=== PATIENT | male | born 1965 | race Caucasian/White ===

== ENCOUNTER 2023-01-27 10:38 | Day surgery (SDC) | payer OTHER, SELFPAY ==
[2023-01-27] VITALS (18 sets, daily range): BP systolic 114–137; BP diastolic 76–103; PULSE 60–86; RESP 12–18; TEMP 35.5–36.8; O2SAT 86–99; BMI 33.1
[2023-01-27] MEDS: LACTATED RINGERS 1000 ML 1,000 ML 100 ML IV (11:00)
[2023-01-27] MEDS: SODIUM CHLORIDE 0.9 % (FLUSH) 10 ML SYRINGE IVF (11:00)
[2023-01-27] MEDS: ACETAMINOPHEN 500 MG TABLET 1000 MG PO ×2 (11:17→21:31)
[2023-01-27] MEDS: CELECOXIB 200 MG CAPSULE PO (11:18)
[2023-01-27] MEDS: OXYCODONE (CR) 10 MG TAB.ER.12H PO (11:18)
[2023-01-27] MEDS: fentaNYL 100 MCG/2 ML inj IVP (15:44)
--- NOTE | 2023-01-27 16:10 | SUR.PREOP ---
TIME?OUT:?1544 PT/RN/MDA?VERIFICATION?OF?SURGICAL?SITE,?PROCEDURE,?AND?CONSENT OBTAINED?PRIOR?TO?INVASIVE?PROCEDURE.
[2023-01-27] MEDS: MIDAZOLAM HCL 1 MG/ML inj IVP (16:11)
--- NOTE | 2023-01-27 16:13 | P.NB_ITS ---
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 Images saved: Yes Medications given in 5ml increments after negative aspiration: Ropivicaine %: 0.5 mL: 20 Needle gauge: 20 Decadron (mg): 10 Precedex (mcg): 25 Patient tolerated procedure well: Yes Additional comments: injected in 5ml increments after negative aspiration Block Charges Block Charge (with Pro Fee): Femoral Nerve Use of Ultrasound Machine for Block: Yes- US Guidance/pain block
--- NOTE | 2023-01-27 16:14 | W.PM.NB ---
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 Images saved: No Medications given in 5ml increments after negative aspiration: Ropivicaine %: 0.5 mL: 12 Needle gauge: 25 Patient tolerated procedure well: Yes Additional comments: Injected in 4ml increments after negative aspiration Block Charges Block Charge (with Pro Fee): Genicular Nerve Block Use of Ultrasound Machine for Block: No
[2023-01-27] MEDS: TRANEXAMIC ACID 100 MG/ML INJ 1000 MG IV (17:00)
[2023-01-27] MEDS: CEFAZOLIN 2 GM INJ IVP (17:00)
[2023-01-27] MEDS: LACTATED RINGERS 1000 ML 1,000 ML 30 ML IV (17:15)
--- NOTE | 2023-01-27 17:22 | SUR.OPER ---
PATIENT QUESTIONS ANSWERED SATISFACTORILY PREOPERATIVELY.? PATIENT BROUGHT TO OR #2 PER CART AFTER ADMINISTRATION OF A BLOCK.? Patient positioned supine on OR #2 bed.? The perioperative?team supported arms bilaterally on arm boards.? Final approval of positioning by surgeon.?
--- NOTE | 2023-01-27 17:31 | W.ANESCHARGE ---
Anesthesia Charges Start Date/Time Anesthesia Start Date: 01/27/23 Anesthesia Start Time: 16:45 Stop Date/Time Anesthesia Stop Date: 01/27/23 Anesthesia Stop Time: 19:16
--- NOTE | 2023-01-27 18:34 | CRLHL7_ITS ---
For Patients: As a result of the Century Cures Act, medical imaging exams and procedure reports are released immediately into your electronic medical record. You may view this report before your referring provider. If you have questions, please contact your health care provider. INDICATION: Follow up a left knee arthroplasty. TECHNIQUE: Two portable postoperative images of the left knee. FINDINGS: Left total knee arthroplasty. Patellar resurfacing. The components are adequately aligned and well seated. Air within the joint space and soft tissues related to the surgery. IMPRESSION: Postsurgical change from a left total knee arthroplasty. The components are adequately aligned and well seated. Dictated by Cory Girard MD @ 01/28/2023 11:35:53 AM (Electronically Signed)
--- NOTE | 2023-01-27 18:35 | PM.ORPRC ---
Procedure Note Date of procedure: 01/27/23 Procedure: PREOPERATIVE DIAGNOSIS: Left knee osteoarthritis POSTOPERATIVE DIAGNOSIS: Left knee osteoarthritis NAME OF OPERATION: Left total knee arthroplasty SURGEON: aMrlon Mendoza MD RELAY MOTORMAN: Marce Vallejo PA-C ANESTHESIA: Spinal ESTIMATED BLOOD LOSS: 0 mL COMPLICATIONS: None SPECIMENS: None DRAINS: None PREOPERATIVE ANTIBIOTICS: Ancef 2 grams, antibiotic impregnated cement IMPLANTS: 1. J&J Attune # 7 posterior stabilized femur 2. # 8 fixed-bearing tibia 3. # 8 posterior stabilized, 10 mm fixed-bearing polyethylene 4. 41 patella INDICATIONS: The patient is a 57-year-old with a longstanding history of severe, unrelenting left knee pain secondary to end-stage (grade IV) left knee osteoarthritis. Despite appropriate nonoperative management, including activity modification, anti-inflammatories, ydnr-[id number] pain medication, bracing, physical therapy, and injections they continue to have pain and disability. Operative intervention was offered. The risks, benefits and expected outcomes were discussed in detail. These included but were not limited to: Infection, bleeding, injury to blood vessel or nerve, venous thromboembolism. All questions were answered to their satisfaction. Use of an employee relations assistant was necessary throughout the case for patient positioning and safety, soft tissue retraction, and closure. PROCEDURE: Spinal anesthesia was administered. The patient was placed supine on the operating table. The employee relations assistant made sure the patient was positioned appropriately. The lower extremity was prepped and draped in the usual sterile fashion. The limb was exsanguinated with the Jamar bandage. The pneumatic tourniquet was inflated to 300 mmHg. A standard anterior incision was made with the knee in flexion. Subcutaneous dissection was sharply taken through fascial layer #1. Full-thickness medial and lateral flaps were elevated. The employee relations assistant retracted the soft tissues and protected them throughout the case. A standard medial parapatellar approach was made. The patella was everted. The infrapatellar fat pad was preserved. The menisci and cruciate ligaments were sharply d?brided. Marginal osteophytes were d?brided with the rongeur. The drill was used to penetrate the femoral canal. The canal was aspirated and irrigated with pulse lavage. The intramedullary femoral guide was placed for a 5-degree valgus cut, removing 10 mm off the distal femur. The saw was used to make the cut. Whitesides line and the trans epicondylar axis were marked. The femoral sizing guide was pinned onto the distal femur. Three degrees of external rotation nicely parallels the transepicondylar axis. Pins were placed for posterior referencing. The four-in-one cutting guide was pinned onto the distal femur. The anterior, posterior, and chamfer cuts were made. The employee relations assistant protected the collateral ligaments. The box cutting guide was pinned. The box cuts were made. The boxed trial was placed and was an excellent fit. Drill holes for the lugs were made. Attention was then turned to the proximal tibia. The extramedullary tibial guide was placed for a neutral varus/valgus cut with 5 degrees of posterior slope, removing 2 mm based off the medial tibial surface. The employee relations assistant protected the collateral ligaments and the neurovascular bundle. The saw was used to make the cut. Trial components were placed. The knee was nicely balanced in both flexion and extension. The trial components were removed. The tray was placed in appropriate rotation, parallel to our tibial cutting pins. It was pinned by the employee relations assistant and the drill and the punch were used. The tray was removed. The punch was used again. We placed a bone plug in the femoral canal. Attention was then turned to the patella. Quileute patellar thickness was 26 mm. The lobster claw resection guide was used with the 9.5 mm luis miguel. The saw was used to make the cut. Drill holes were made by the employee relations assistant. The trial was placed and was an excellent fit. Cancellous surfaces were irrigated with pulse lavage and thoroughly dried by the employee relations assistant. We cemented the tibial component, then the femoral component. We impacted the 10 mm polyethylene onto the tibial tray. The knee was brought into full extension. We then cemented the patellar component. Excessive cement was removed. The cement was allowed to harden. The knee was taken through a range of motion and was found to be nicely balanced in both flexion and extension. The patella tracks centrally. The employee relations assistant did a three minute dilute Betadine solution soak. The employee relations assistant irrigated the wound with 3 liters of normal saline via pulse lavage. The employee relations assistant reapproximated the extensor mechanism with #1 Vicryl in an interrupted gnokad-yb-shhbv fashion. The employee relations assistant then ran the extensor mechanism with a #1 PDO Stratafix. The employee relations assistant closed the subcutaneous tissues with a 3-0 Stratafix and the skin with a running 3-0 Stratafix in a subcuticular fashion. Glue was used to seal the skin. The employee relations assistant placed a dry dressing, BARBARA stocking, and Polar Care. Sponge and needle counts were correct x2. The patient tolerated the procedure well. There were no apparent complications. They were carefully transferred to the hospital bed and taken to the postanesthesia care unit in satisfactory condition. PLAN: The patient will be mobilized with physical therapy. Aspirin will be used for DVT prophylaxis. They will be discharged to home once medically appropriate.
--- NOTE | 2023-01-27 18:59 | PM.IMCN1 ---
Date of Consult Patient: Mazin Patient Consult date: 01/27/23 Requesting Physician: Orthopedics Primary Care Provider: Reddy Grigsby MD Consult Narrative Reason for consult: Medical management of comorbidities Narrative: Maxwell Garrison is a 57 year old male who presented to the hospital today for an elective L TKA. There were no surgical or anesthetic complications noted during procedure. Patient's H&P reviewed, PCP is Dr. Grigsby. Past medical history significant for: noninsulin dependent DM2 (on Metformin as monotherapy, last A1C <6.5), hyperlipidemia. History of blood clots: No Postoperative plan: Home with Review of Systems Status of ROS: Reports: 10 or more systems reviewed and unremarkable except as noted in History and below PFSH [facility] Medical History (Updated 05/28/22 @ 11:46 by Xiomy Beckham) Diabetes ?E11.9 - Type 2 diabetes mellitus without complications (ICD-10) Sleep apnea ?G47.30 - Sleep apnea, unspecified (ICD-10) Surgical History (Updated 01/27/23 @ 20:48 by Katina Alexandre MD) Status post left knee replacement ?Z96.652 - Presence of left artificial knee joint (ICD-10) H/O arthroscopy of left knee ?Z98.890 - Other specified postprocedural states (ICD-10) S/P right knee arthroscopy (03/17/08) ?Z98.890 - Other specified postprocedural states (ICD-10) Status post arthroscopy of right shoulder (08/12/13) ?Z98.890 - Other specified postprocedural states (ICD-10) Social History What is your current living situation?: I presently have a place to live Problems where you live: no known problems In the past 12 months, utilities in danger of being shut off: no In past 12 months, lack of transportation kept you from medical appts, meetings, work, or getting things needed for daily living: no In the past 12 mos, have been you worried that your food would run out before you had money to buy more?: never true In the past 12 mos, the food you bought just didn't last and you didn't have money to buy more?: never true Smoking Status: Never smoker How often do you have a drink containing alcohol: 2-3 times a week How many standard drinks containing alcohol do you have on a typical day: 1 or 2 How often do you have six or more drinks on one occasion: Never AUDIT-C Alcohol total score: 3 Non-prescribed substance use: denies use How often does anyone, including family, friends and others, physically hurt you: never How often does anyone, including family, friends and others, insult or talk down to you: never How often does anyone, including family, friends and others, threaten you with harm: never How often does anyone, including family, friends and others, scream or curse at you: never service: No Meds Home Medications and Allergies Home Medications Medication Instructions Recorded Confirmed Type atorvastatin 20 mg tablet 20 mg PO DAILY 05/28/22 01/27/23 History diclofenac sodium 100 mg 100 mg PO DAILY 05/28/22 01/27/23 History tablet,extended release 24 hr metformin 500 mg tablet,extended 1,000 mg PO DAILY 05/28/22 01/27/23 History release 24 hr Allergies Allergy/AdvReac Type Severity Reaction Status Date / Time No Known Drug Allergies Allergy Verified 01/27/23 11:57 Exam Narrative: Exam Narrative: GEN: Alert and oriented, answering questions appropriately HEENT: EOMIs bilaterally, no scleral icterus CV: RRR, No concerning murmurs, rubs, or gallops R: No tachpynea, stable on RA. LCTA bilaterally without concerning wheezing Ext: wearing teds bilaterally Skin: No concerning skin lesions or rashes on exposed skin Neuro: Nonfocal Psych: Appropriate Const: Vital Signs, click to edit/add: Vital Signs - 24 hr 01/27/23 11:30 01/27/23 15:41 01/27/23 15:45 Temperature 97.9 F Pulse Rate 73 63 65 Respiratory Rate 16 16 16 Blood Pressure 137/76 123/94 H 123/88 Pulse Oximetry 94 95 95 Oxygen Delivery Me thod Room Air Room Air Room Air Assessment and Plan Assessment and plan (1) Status post left knee replacement: Problem comment: - 01/27/23Reji Status: Acute Plan - pain management and prophylaxis per orthopedic surgery team - continue home medications for comorbidities - anticipate routine postoperative course
[2023-01-27] MEDS: ASPIRIN 81 MG TABLET EC PO (21:31)
[2023-01-27] MEDS: SENNOSIDES 1 TAB TABLET 2 TAB PO (21:32)
[2023-01-27] MEDS: OXYCODONE 5 MG TABLET PO (23:40)
[2023-01-27] MEDS: ONDANSETRON 2 MG/ML inj 4 MG IVP (23:41)
[2023-01-28] MEDS: CEFAZOLIN 2 GM in 0.9 % SODIUM CHLORIDE Mini-bag 100 ML IVPB ×2 (00:22→08:42)
[2023-01-28 01:41] VITALS: BP 114/83; PULSE 84; RESP 16; TEMP 36.8; O2SAT 94
[2023-01-28] MEDS: OXYCODONE 5 MG TABLET PO ×2 (01:53→05:56)
[2023-01-28] MEDS: LACTATED RINGERS 1000 ML 1,000 ML 75 ML IV (02:10)
[2023-01-28 02:12] VITALS: BP 128/96; PULSE 81; RESP 16; TEMP 36.2; O2SAT 94
[2023-01-28 03:16] VITALS: TEMP 36.2
[2023-01-28] MEDS: ACETAMINOPHEN 500 MG TABLET 1000 MG PO ×2 (03:16→09:41)
[2023-01-28 03:19] VITALS: BP 128/96; PULSE 81; RESP 16; TEMP 36.2; O2SAT 94
--- NOTE | 2023-01-28 03:28 | PC.NURSE ---
Pt doing very well considering how late he came up to the floor. Eating regular diet without N/V. Pain controlled. Up with walker to BR and voiding. Wound CDI.
[2023-01-28 06:28] LABS: Basophils Percent Auto 0.1 % (0.0-3.0); Hematocrit 46.2 % (37.0-53.0); Hemoglobin* 16.1 gm/dL (13.5-17.5); Immature Granulocytes Pct Auto 0.2 %; Lymphocytes Percent Auto 12.5 % (20-44); Mean Corpuscular HGB Conc 35 gm/dL (32-36); Mean Corpuscular Hemoglobin 32 pg (26-34); Mean Corpuscular Volume 93 fL (80-100); Monocytes Percent Auto 7.4 % (0.0-11.0); Neutrophils Percent Auto 79.8 % (42.0-72.0); Platelet Count* 253 K/uL (140-440); RDW Coefficient of Variation % 11.8 % (11.5-15.5); Red Blood Count 4.97 m/uL (4.30-5.90); White Blood Count* 13.99 K/uL (4.50-11.00)
[2023-01-28 06:34] LABS: Slide Review Reflex No
[2023-01-28 06:47] LABS: Potassium* 4.6 mmol/L (3.6-5.1); Sodium* 139 mmol/L (135-149)
[2023-01-28 06:50] LABS: Blood Urea Nitrogen* 18 mg/dL (7-30); Creatinine* 0.7 mg/dL (0.5-1.5); Est. Creatinine Clearance* 124.01; Estimated Glomerular Filt Rate 107 ml/min
[2023-01-28 07:00] VITALS: BP 145/99; PULSE 84; RESP 18; TEMP 36.3; O2SAT 99
[2023-01-28 07:11] LABS: INR 1.01 (0.91-1.10); Prothrombin Time 13.9 Seconds
[2023-01-28] MEDS: SENNOSIDES 1 TAB TABLET 2 TAB PO (09:41)
[2023-01-28] MEDS: ASPIRIN 81 MG TABLET EC PO (09:41)
--- NOTE | 2023-01-28 10:43 | PC.NURSE ---
shift note: pt up sba/walker with slight weakness in lt knee. drsg to lt knee c/d/i with intact PP bilat. cap refill intact. cryo cuff in place. pt rating pain at this time . IV dc'd intact lt hand. Reviewed dc instructions and copies sent with pt at dc. Belongings reviewed and sent with pt at dc
--- NOTE | 2023-01-28 10:51 | PM.ORPN ---
Subjective Subjective Time Seen by Provider: 07:35 Date Seen: 01/28/23 Principal diagnosis: status post left knee replacement Interval history: Remi is comfortable at rest in the recliner this morning. He will discharge to home with his today. Ortho Exam Narrative Exam Narrative: Alert and oriented x3. Patient is in no acute distress. Converses without labored breathing. Hearing is grossly intact. Ambulates with a Walker. Examination of the left knee shows the dressing is intact. Effusion is present and mild. Mild soft tissue edema. Mild ecchymosis. Quad strength 4/5. No sign of infection. No erythema. Bilateral calves are soft nontender. CMS intact left lower extremity. Const Vital Signs, click to edit/add: Vital Signs - 24 hr 01/27/23 11:30 01/27/23 15:41 01/27/23 15:45 Temperature 97.9 F Pulse Rate 73 63 65 Pulse Rate [Pulse Oximeter] Respiratory Rate 16 16 16 Blood Pressure 137/76 123/94 H 123/88 Blood Pressure [Right Arm] Pulse Oximetry 94 95 95 Oxygen Delivery Method Room Air Room Air Room Air 01/27/23 19:13 01/27/23 19:20 01/27/23 19:25 Temperature 97.2 F L Pulse Rate 61 60 63 Pulse Rate [Pulse Oximeter] Respiratory Rate 16 14 12 Blood Pressure 115/89 114/88 126/87 Blood Pressure [Right Arm] Pulse Oximetry 98 97 97 Oxygen Delivery Method Room Air Room Air Room Air 01/27/23 19:30 01/27/23 19:35 01/27/23 19:40 Temperature 97.3 F L Pulse Rate 61 60 60 Pulse Rate [Pulse Oximeter] Respiratory Rate 14 12 14 Blood Pressure 124/88 131/90 H 128/88 Blood Pressure [Right Arm] Pulse Oximetry 99 97 96 Oxygen Delivery Method Room Air Room Air Room Air 01/27/23 19:45 01/27/23 19:53 01/27/23 20:00 Temperature 97.1 F L 96 F L 96 F L Pulse Rate 64 62 Pulse Rate [Pulse Oximeter] 60 Respiratory Rate 12 16 18 Blood Pressure 136/88 132/103 H Blood Pressure [Right Arm] 127/85 Pulse Oximetry 96 96 96 Oxygen Delivery Method Room Air Room Air Room Air 01/27/23 20:10 01/27/23 23:34 01/27/23 23:46 Temperature 96 F L 96 F L Pulse Rate 62 Pulse Rate [Pulse Oximeter] Respiratory Rate 16 Blood Pressure Blood Pressure [Right Arm] 132/103 H Pulse Oximetry 86 L Oxygen Delivery Method Room Air 01/27/23 23:47 01/27/23 23:49 01/27/23 23:51 Temperature 98.2 F 98.2 F Pulse Rate Pulse Rate [Pulse Oximeter] 60 86 86 Respiratory Rate 16 16 16 Blood Pressure Blood Pressure [Right Arm] 126/92 H 126/92 H Pulse Oximetry 94 94 Oxygen Delivery Method Room Air Room Air 01/28/23 01:41 01/28/23 02:12 01/28/23 03:16 Temperature 98.2 F 97.1 F L 97.1 F L Pulse Rate Pulse Rate [Pulse Oximeter] 84 81 Respiratory Rate 16 16 Blood Pressure Blood Pressure [Right Arm] 114/83 128/96 H Pulse Oximetry 94 94 Oxygen Delivery Method Room Air Room Air 01/28/23 03:19 01/28/23 07:00 01/28/23 07:00 Temperature 97.1 F L 97.4 F L Pulse Rate Pulse Rate [Pulse Oximeter] 81 84 Respiratory Rate 16 18 Blood Pressure Blood Pressure [Right Arm] 128/96 H 145/99 H Pulse Oximetry 94 99 99 Oxygen Delivery Method Room Air Room Air Assessment and Plan Assessment and plan (1) Status post left knee replacement: Problem details: - 01/27/23Reji Status: Acute Assessment and Plan: Plan for discharge is today to home if they meet discharge criteria. DVT prophylaxis includes aspirin 81 mg twice daily x1 month, Damian stockings x1 month may remove for 1 hr per day, frequent ambulation Remove dressing in 1 week. Observe wound and phone Orthopedics with any questions or concerns Return to clinic in 1 week for a wound check Return to clinic in 6 weeks with surgeon Minimize narcotic use. Wean off and discontinue soon as possible. Activities as tolerated. No strenuous activity. Outpatient physical therapy as scheduled. Ice and elevate the operative extremity. No restriction on ice.
== END 2023-01-28 11:13 | disposition home or self-care (01) ==
LOC: OR 10:39 → MEDSURG 10:41
PROVIDERS: PCP Family Medicine; Visit Provider Orthopaedic Surgery
PROC: (CPT 27447; principal; 2023-01-27 12:15)
DX: M17.12 Unilateral primary osteoarthritis, left knee (principal); G89.18 Other acute postprocedural pain; E11.9 Type 2 diabetes mellitus without complications; Z79.84 Long term (current) use of oral hypoglycemic drugs; G47.30 Sleep apnea, unspecified
CPT/HCPCS: 27447; 1402; 36415; 64447; 64454; 73560; 76942; 82565; 82962; 84132; 84295; 84520; 85025; 85610; 97110; 97116; 97161; 97165; A9270; C1776; J0690; J1100; J2250; J2405; J2704; J2795; J3010; J7120

== ENCOUNTER 2023-04-07 14:30 | Outpatient (RCR) | payer OTHER, SELFPAY | END 2023-04-09 13:36 | disposition home or self-care (01) | PROVIDERS: PCP Family Medicine; Visit Provider Orthopaedic Surgery | DX: M17.12 Unilateral primary osteoarthritis, left knee (principal); Z96.652 Presence of left artificial knee joint; M25.562 Pain in left knee; R53.1 Weakness; Z51.89 Encounter for other specified aftercare | CPT/HCPCS: 97110; 97112; 97161 ==